=== PATIENT | male | born 1960 | race Caucasian/White ===

== ENCOUNTER 2016-10-04 09:07 | Inpatient (IN) | payer OTHER ==
[~2016-10-04] VITALS: Ht 180.3 cm; Wt 114.0 kg
[~2016-10-04 09:07] MED LIST: ACETAMINOPHEN-1 EAC1 PO; ADULT LOW DOSE81 M1 PO; ADVAIR HFA120 INHALA IH; ADVIL200 MG PO; AFRIN,GENASAL D15 ML BOTH NARES; ALBUTEROL SULF8.5 GM IH; ALDACTONE25 MG PO; ALEVE220 M2 PO; ALEVE220 MG PO; AMIODARONE HCL200 MG PO; AMOXICILLIN875 MG PO; ASPIR 8181 M1 PO; ASPIR-LOW81 MG PO; ATORVASTATIN CA40 MG PO; AZITHROMYCIN500 M1 PO; BENZONATATE100 MG PO; BICARSIM80 MG PO; BUMETANIDE1 MG PO; BUMETANIDE2 MG PO; BUMEX1 MG PO; CARDIZEM CD,CA180 MG PO; CARDIZEM CD,CA240 MG PO; CARDIZEM CD120 MG PO; CARDIZEM CD240 MG PO; CARTIA XT120 MG PO; CARVEDILOL12.5 MG PO; CARVEDILOL25 MG PO; CARVEDILOL3.125 MG PO; CEFTIN500 MG PO; COLACE10 MG/ML PO; COLACE100 MG PO; COMBIVENT RESPIM4 GM IH; CORDARONE200 MG PO; COREG12.5 M1 PO; COREG25 M1 PO; COREG3.125 M1 PO; COUMADIN5 MG PO; COUMADIN6 MG PO; COUMADIN7.5 MG PO; COZAAR25 MG PO; DIGITEK250 MC2 PO; DIGOX250 MCG PO; DIGOXIN125 MCG PO; DIGOXIN250 MCG PO; DILTIAZEM 24HR240 MG PO; DOCUSATE SODIU100 MG PO; DOXYCYCLINE HY100 MG PO; FLONASE ALLERG9.9 ML BOTH NARES; FLONASE16 G1 BOTH NARES; FUROSEMIDE40 MG PO; GLUCOPHAGE500 MG PO; HYCODAN SYRUP480 ML PO; LASIX20 MG PO; LASIX40 MG PO; LEVEMIR FL100 UNIT/1 SC; LEVEMIR100 UNIT/2 SC; LEVOFLOXACIN750 MG PO; LISINOPRIL10 MG PO; LISINOPRIL2.5 MG PO; LO-DOSE ASPIRIN81 M1 PO; LOPRESSOR25 MG PO; LOPRESSOR50 MG PO; LOSARTAN POTASS25 MG PO; LOVENOX150 MG/1 M SC; METFORMIN HCL500 MG PO; METOPROLOL TAR100 MG PO; METOPROLOL TART25 MG PO; METOPROLOL TART50 MG PO; MILK OF MAGNESI10 ML PO; MIRALAX17 GM PO; MOTRIN400 MG PO; MUCINEX600 MG PO; NAPROSYN500 MG PO; OCUVITE TABLET1 EACH PO; OMEPRAZOLE40 M1 PO; OXYMETAZOLINE H15 ML BOTH NARES; PERCOCET 5/31 TABLET PO; POLYETHYLENE GL17 GM PO; PRAVACHOL80 MG PO; PRAVASTATIN SOD80 MG PO; PREDNISONE10 MG PO; PREDNISONE20 MG PO; PREDNISONE50 MG PO; PROVENTIL HFA6.7 GM IH; SPIRONOLACTONE25 MG PO; TYLENOL REGULA325 MG PO; TYLENOL WITH C1 EACH PO; ULTRAM50 MG PO; VENTOLIN HFA18 GM IH; XARELTO20 MG PO; ZESTRIL10 MG PO; ZITHROMAX Z-PA250 MG PO; ZITHROMAX250 MG PO; ZYRTEC10 M3 PO; [UNRECOGNIZED DRUG - OTHER] TP
[2016-10-04 09:37] LABS: HEMATOCRIT 40.2 % (38.0-50.0); MCH 26.3 PG (29.0-34.0); MCHC 33.1 G/DL (30.0-36.0); MCV 79.6 FL (86-99); MEAN PLAT.VOLUME 11.9 uM^3 (9.0-12.4); PLATELET COUNT 187 K/uL (156-360); RBC DIS.WIDTH-CV 17.5 % (11.8-14.6); RBC DIS.WIDTH-SD 48.9 % (39-53); RED BLOOD COUNT 5.05 M/uL (4.00-5.50); WHITE BLOOD COUNT 14.6 K/uL (4.1-10.2)
[2016-10-04 09:45] LABS: CHLORIDE 106 mEq/L (99-109); POTASSIUM 4.1 mEq/L (3.7-5.4)
[2016-10-04 09:49] LABS: ANION GAP 16 MEQ/L (2-14)
[2016-10-04 09:50] LABS: TOTAL BILIRUBIN 0.8 mg/dL (0.0-1.0)
[2016-10-04 09:51] LABS: ALKALINE PHOSPHATASE 94 IU/L (3-129); GFR ESTIMATE (CALCULATED) > 59 mL/min/
[2016-10-04 09:52] LABS: GLUCOSE 275 mg/dL (70-99); SODIUM 141 mEq/L (136-147)
[2016-10-04 10:00] LABS: UREA NITROGEN (BUN) 25 mg/dL (9-23)
[2016-10-04 10:55] LABS: ABS NEUTROPHIL COUNT 9.81; ANISOCYTOSIS 1+; MACROCYTES 1+; PLAT.SUFFICIENCY ADEQUATE; SPHEROCYTES OCC; USER ID TLW
[2016-10-04 11:05] LABS: MAGNESIUM 2.1 mg/dL (1.3-2.7)
[2016-10-04 11:17] LABS: TROP-I INTERPRETATION NEGATIVE; TROPONIN-I 0.02 ng/mL (0.0-0.30)
[2016-10-04] MEDS ORDERED: BUMEX2 MG PO (11:26)
[2016-10-04] MEDS ORDERED: LEVEMIR FL100 UNIT/1 SC (11:28)
[2016-10-04] MEDS ORDERED: LOW DOSE ASPIRI81 M1 PO (11:29)
[2016-10-04] MEDS ORDERED: LOPRESSOR25 MG PO (11:30)
[2016-10-04] MEDS ORDERED: POTASSIUM CHLO10 ME3 PO (11:30)
[2016-10-04] MEDS ORDERED: ADVAIR HFA120 INHALA IH (11:31)
[2016-10-04] MEDS ORDERED: DILTIAZEM 24HR240 MG PO (11:31)
[2016-10-04] MEDS ORDERED: LEVOFLOXACIN750 MG PO (11:32)
[2016-10-04] MEDS ORDERED: DAILY VITE1 EAC1 PO (11:34)
[2016-10-04] MEDS ORDERED: PREDNISONE20 MG PO (11:35)
[2016-10-04 13:54] LABS: DELETE MACHINE DIFF? YES
[2016-10-04 15:25] VITALS: BP 105/60
[2016-10-04 15:30] VITALS: BP 106/62
[2016-10-04 15:45] VITALS: BP 108/63
[2016-10-04 16:00] VITALS: BP 118/70
[2016-10-04 17:27] LABS: TROP-I INTERPRETATION NEGATIVE; TROPONIN-I < 0.01 ng/mL (0.0-0.30)
[2016-10-04 17:29] LABS: METH RESISTANT S AUREUS PCR NEGATIVE (NEGATIVE)
[2016-10-04 17:30] LABS: PROBE CHECK PASS; SPECIMEN PROCESSING CONTROL PASS
[2016-10-04 18:00] VITALS: BP 109/64
[2016-10-04 20:00] VITALS: BP 106/68
[2016-10-05] VITALS (7 sets, daily range): BP systolic 108–142; BP diastolic 59–85
[2016-10-05 06:24] LABS: ALKALINE PHOSPHATASE 86 IU/L (3-129); ANION GAP 14 MEQ/L (2-14); CHLORIDE 98 MEQ/L (99-109); GFR ESTIMATE (CALCULATED) > 59 mL/min/; GLUCOSE 295 mg/dL (70-99); SAMPLE HEMOLYSIS CHECK 0; SAMPLE ICTERIC CHECK 0; SAMPLE LIPEMIA CHECK 0; SODIUM 140 MEQ/L (136-147); TOTAL BILIRUBIN 1.4 MG/DL (0.0-1.0); UREA NITROGEN (BUN) 23 mg/dL (9-23)
[2016-10-05 06:43] LABS: HEMATOCRIT 40.9 % (38.0-50.0); MCH 25.3 PG (29.0-34.0); MCHC 31.5 G/DL (30.0-36.0); MCV 80.4 FL (86-99); RBC DIS.WIDTH-CV 17.3 % (11.8-14.6); RBC DIS.WIDTH-SD 50.6 % (39-53); RED BLOOD COUNT 5.09 M/uL (4.00-5.50); WHITE BLOOD COUNT 11.1 K/uL (4.1-10.2)
[2016-10-05 07:19] LABS: PLATELET COUNT UNABLE TO REPORT K/uL (156-360)
[2016-10-05 11:38] LABS: POINT-OF-CARE USER ID ENVKC36
[2016-10-05 17:02] LABS: POINT-OF-CARE METER ID UU13113698; POINT-OF-CARE USER ID ENVKC36
[2016-10-06 00:52] VITALS: BP 110/71
[2016-10-06 05:05] VITALS: BP 106/73
[2016-10-06 06:40] LABS: ANION GAP 9 MEQ/L (2-14); CHLORIDE 96 MEQ/L (99-109); GFR ESTIMATE (CALCULATED) > 59 mL/min/; GLUCOSE 154 mg/dL (70-99); POTASSIUM 4.2 MEQ/L (3.7-5.4); SAMPLE HEMOLYSIS CHECK 0; SAMPLE ICTERIC CHECK 0; SAMPLE LIPEMIA CHECK 0; SODIUM 137 MEQ/L (136-147); UREA NITROGEN (BUN) 25 mg/dL (9-23)
[2016-10-06 07:00] VITALS: BP 108/62
[2016-10-06 08:03] LABS: POINT-OF-CARE METER ID UU13113698
[2016-10-06 11:00] VITALS: BP 112/62
[2016-10-06] MEDS ORDERED: DOXYCYCLINE HY100 M3 PO (13:03)
[2016-10-06] MEDS ORDERED: LOPRESSOR50 MG PO (13:03)
[2016-10-06] MEDS ORDERED: LOSARTAN POTASS25 MG PO (15:35)
== END 2016-10-06 16:00 | disposition home or self-care (01) | DRG 308 ==
LOC: EME 09:07 → 4EAST 10:20 → EDOF 10:20 → 4WEST 10:20 → 4EAST 10-05 11:18
PROVIDERS: Emergency Medicine; Internal Medicine; Student in an Organized Health Care Education/Training Program
DX: I48.1 Persistent atrial fibrillation (principal); J96.01 Acute respiratory failure with hypoxia; J44.0 Chronic obstructive pulmonary disease with (acute) lower respiratory infection; J18.9 Pneumonia, unspecified organism; I50.23 Acute on chronic systolic (congestive) heart failure; I42.0 Dilated cardiomyopathy; Q25.43 Congenital aneurysm of aorta; J20.9 Acute bronchitis, unspecified; I10 Essential (primary) hypertension; E11.9 Type 2 diabetes mellitus without complications; E78.5 Hyperlipidemia, unspecified; E66.01 Morbid (severe) obesity due to excess calories; Z68.35 Body mass index [BMI] 35.0-35.9, adult; I25.2 Old myocardial infarction; Z79.01 Long term (current) use of anticoagulants; Z95.810 Presence of automatic (implantable) cardiac defibrillator; Z79.4 Long term (current) use of insulin; Z87.891 Personal history of nicotine dependence
CPT/HCPCS: 36415; 71010; 80048; 80053; 80061; 80076; 80162; 82043; 82570; 82948; 83036; 83735; 83880; 84484; 85025; 85027; 86850; 86900; 86901; 87040; 87070; 87205; 87641; 93005; 93306; 94640; 94640 76; 94644; 94645; 94760; 94799; 99202; 99281; 99285; J1100; J1160; J1815; J2270; J2405; J2543; J7050

== ENCOUNTER 2016-11-03 10:20 | Emergency (ER) | payer OTHER ==
[~2016-11-03] VITALS: Ht 180.3 cm; Wt 122.7 kg
[~2016-11-03 10:20] MED LIST changes: +BUMEX2 MG PO; +DAILY VITE1 EAC1 PO; +DOXYCYCLINE HY100 M3 PO; +LOW DOSE ASPIRI81 M1 PO; +POTASSIUM CHLO10 ME3 PO
[2016-11-03 11:09] LABS: HEMATOCRIT 37.8 % (38.0-50.0); MCH 26.1 PG (29.0-34.0); MCHC 32.8 G/DL (30.0-36.0); MCV 79.6 FL (86-99); RBC DIS.WIDTH-CV 17.1 % (11.8-14.6); RBC DIS.WIDTH-SD 47.2 % (39-53); RED BLOOD COUNT 4.75 M/uL (4.00-5.50); WHITE BLOOD COUNT 9.1 K/uL (4.1-10.2)
[2016-11-03 11:13] LABS: EOSINOPHIL (%) 0.7 % (0-5); EOSINOPHIL COUNT 0.1 K/uL (0-0.3); IMMATURE GRANULOCYTE (%) 0.3 % (0.0-0.7); IMMATURE GRANULOCYTE COUNT 0.3 K/uL; LYMPHOCYTE COUNT 1.2 K/uL (1.0-2.8); MEAN PLAT.VOLUME 11.1 uM^3 (9.0-12.4); MONOCYTE (%) 7.2 % (3-12); MONOCYTE COUNT 0.7 K/uL (0-0.8); NEUTROPHIL (%) 77.8 % (45-76); NEUTROPHIL COUNT 7.1 K/uL (1.8-6.4)
[2016-11-03 11:19] LABS: INTER. NORMALIZED RATIO 1.3; PROTHROMBIN TIME 13.1 (9.2-11.2)
[2016-11-03 11:23] LABS: CHLORIDE 100 mEq/L (99-109); POTASSIUM 3.2 mEq/L (3.7-5.4); SODIUM 138 mEq/L (136-147)
[2016-11-03 11:24] LABS: GLUCOSE 194 mg/dL (70-99)
[2016-11-03 11:26] LABS: ANION GAP 14 MEQ/L (2-14)
[2016-11-03 11:28] LABS: GFR ESTIMATE (CALCULATED) > 59 mL/min/
[2016-11-03 11:29] LABS: TROP-I INTERPRETATION NEGATIVE; TROPONIN-I 0.02 ng/mL (0.0-0.30); UREA NITROGEN (BUN) 11 mg/dL (9-23)
[2016-11-03 12:02] LABS: PLATELET COUNT 140 K/uL (156-360)
[2016-11-03 14:42] LABS: TROP-I INTERPRETATION NEGATIVE; TROPONIN-I 0.02 ng/mL (0.0-0.30)
[2016-11-03 15:14] VITALS: BP 94/71
== END 2016-11-03 15:18 | disposition home or self-care (01) ==
LOC: EME 10:20
PROVIDERS: Emergency Medicine
DX: R07.89 Other chest pain (principal); M54.9 Dorsalgia, unspecified; J45.909 Unspecified asthma, uncomplicated; J44.9 Chronic obstructive pulmonary disease, unspecified; E11.9 Type 2 diabetes mellitus without complications; E78.5 Hyperlipidemia, unspecified; I25.10 Atherosclerotic heart disease of native coronary artery without angina pectoris; I25.2 Old myocardial infarction; K21.9 Gastro-esophageal reflux disease without esophagitis; Z87.442 Personal history of urinary calculi; Z79.84 Long term (current) use of oral hypoglycemic drugs; Z79.82 Long term (current) use of aspirin; Z87.891 Personal history of nicotine dependence
CPT/HCPCS: 71010; 71275; 80048; 84484; 85025; 85610; 85730; 93005; 99281; 99285; J2270

== ENCOUNTER 2016-11-12 08:15 | Inpatient (IN) | payer OTHER ==
[~2016-11-12] VITALS: Ht 180.3 cm; Wt 127.6 kg
[2016-11-12 08:51] LABS: BASOPHIL COUNT 0.1 K/uL (0-0.1); EOSINOPHIL (%) 0.5 % (0-5); EOSINOPHIL COUNT 0.1 K/uL (0-0.3); HEMATOCRIT 41.5 % (38.0-50.0); IMMATURE GRANULOCYTE (%) 0.5 % (0.0-0.7); IMMATURE GRANULOCYTE COUNT 0.7 K/uL; LYMPHOCYTE COUNT 2.6 K/uL (1.0-2.8); MCH 26.1 PG (29.0-34.0); MCHC 31.8 G/DL (30.0-36.0); MEAN PLAT.VOLUME 11.5 uM^3 (9.0-12.4); MONOCYTE (%) 10.4 % (3-12); MONOCYTE COUNT 1.4 K/uL (0-0.8); NEUTROPHIL COUNT 8.9 K/uL (1.8-6.4); PLATELET COUNT 175 K/uL (156-360); RBC DIS.WIDTH-CV 17.4 % (11.8-14.6); RBC DIS.WIDTH-SD 51.3 % (39-53); RED BLOOD COUNT 5.06 M/uL (4.00-5.50); WHITE BLOOD COUNT 13.1 K/uL (4.1-10.2)
[2016-11-12 09:00] LABS: CHLORIDE 107 mEq/L (99-109); POTASSIUM 4.5 mEq/L (3.7-5.4); SODIUM 140 mEq/L (136-147)
[2016-11-12 09:02] LABS: GLUCOSE 235 mg/dL (70-99)
[2016-11-12 09:03] LABS: ANION GAP 14 MEQ/L (2-14)
[2016-11-12 09:06] LABS: GFR ESTIMATE (CALCULATED) > 59 mL/min/
[2016-11-12 09:07] LABS: UREA NITROGEN (BUN) 13 mg/dL (9-23)
[2016-11-12 09:09] LABS: INTER. NORMALIZED RATIO 1.2; PROTHROMBIN TIME 12.3 (9.2-11.2); PTT 28.6 (25-32)
[2016-11-12 09:11] LABS: TROP-I INTERPRETATION NEGATIVE; TROPONIN-I 0.02 ng/mL (0.0-0.30)
[2016-11-12] MEDS ORDERED: BUMEX1 MG PO (11:56)
[2016-11-12] MEDS ORDERED: LOPRESSOR25 MG PO (11:59)
[2016-11-12] MEDS ORDERED: ULTRAM50 MG PO (12:00)
[2016-11-12] MEDS ORDERED: COZAAR25 MG PO (12:00)
[2016-11-12] MEDS ORDERED: TESSALON200 MG PO (12:01)
[2016-11-12 15:30] LABS: POINT-OF-CARE METER ID UU13113702
[2016-11-12 17:28] VITALS: BP 122/86
[2016-11-12 19:13] VITALS: BP 137/84
[2016-11-12 20:16] VITALS: BP 134/70
[2016-11-12 21:17] VITALS: BP 113/77
[2016-11-12 22:01] VITALS: BP 125/83
[2016-11-12 23:19] VITALS: BP 106/91
[2016-11-13] VITALS (14 sets, daily range): BP systolic 90–134; BP diastolic 54–91
[2016-11-13 16:16] LABS: POINT-OF-CARE METER ID UU13113698
[2016-11-14 00:22] VITALS: BP 99/60
[2016-11-14 03:45] VITALS: BP 94/61
[2016-11-14 07:28] LABS: ANION GAP 8 MEQ/L (2-14); CHLORIDE 100 MEQ/L (99-109); GFR ESTIMATE (CALCULATED) > 59 mL/min/; GLUCOSE 135 mg/dL (70-99); MAGNESIUM 1.7 mg/dl (1.3-2.7); POTASSIUM 3.9 MEQ/L (3.7-5.4); SAMPLE HEMOLYSIS CHECK 0; SAMPLE ICTERIC CHECK 0; SAMPLE LIPEMIA CHECK 0; SODIUM 135 MEQ/L (136-147); UREA NITROGEN (BUN) 15 mg/dL (9-23)
[2016-11-14 07:37] VITALS: BP 88/56
[2016-11-14 07:43] LABS: POINT-OF-CARE METER ID UU14174216
[2016-11-14] MEDS ORDERED: TESSALON200 MG PO (08:55)
== END 2016-11-14 10:59 | disposition home or self-care (01) | DRG 292 ==
LOC: EME 08:15 → EDOF 11:32 → 4EAST 13:16 → EDOF 13:16 → 4EAST 17:03
PROVIDERS: Emergency Medicine; Family Medicine; Hospitalist; Internal Medicine
DX: I50.43 Acute on chronic combined systolic (congestive) and diastolic (congestive) heart failure (principal); I42.0 Dilated cardiomyopathy; Z68.41 Body mass index [BMI] 40.0-44.9, adult; I48.2 Chronic atrial fibrillation; J44.9 Chronic obstructive pulmonary disease, unspecified; E11.9 Type 2 diabetes mellitus without complications; Z96.652 Presence of left artificial knee joint; E66.01 Morbid (severe) obesity due to excess calories; Z79.01 Long term (current) use of anticoagulants; Z79.4 Long term (current) use of insulin; Z79.82 Long term (current) use of aspirin
CPT/HCPCS: 71010; 80048; 82948; 83735; 83880; 84484; 85025; 85610; 85730; 93005; 94640; 94640 76; 94799; 99202; 99281; 99285; J1815

== ENCOUNTER 2017-01-25 12:51 | Observation (INO) | payer OTHER ==
[~2017-01-25] VITALS: Ht 180.3 cm; Wt 123.0 kg
[~2017-01-25 12:51] MED LIST changes: +TESSALON200 MG PO
[2017-01-25 14:55] LABS: HEMATOCRIT 42.9 % (38.0-50.0); MCHC 32.6 G/DL (30.0-36.0); MCV 79.7 FL (86-99); PLATELET COUNT 185 K/uL (156-360); RBC DIS.WIDTH-CV 14.9 % (11.8-14.6); RBC DIS.WIDTH-SD 42.9 % (39-53); RED BLOOD COUNT 5.38 M/uL (4.00-5.50); WHITE BLOOD COUNT 11.8 K/uL (4.1-10.2)
[2017-01-25 15:02] LABS: CHLORIDE 102 mEq/L (99-109); POTASSIUM 3.4 mEq/L (3.7-5.4); SODIUM 138 mEq/L (136-147)
[2017-01-25 15:04] LABS: GLUCOSE 140 mg/dL (70-99)
[2017-01-25 15:05] LABS: ANION GAP 16 MEQ/L (2-14)
[2017-01-25 15:08] LABS: GFR ESTIMATE (CALCULATED) > 59 mL/min/
[2017-01-25 15:09] LABS: UREA NITROGEN (BUN) 14 mg/dL (9-23)
[2017-01-25 15:14] LABS: TROP-I INTERPRETATION NEGATIVE; TROPONIN-I 0.03 ng/mL (0.0-0.30)
[2017-01-25] MEDS ORDERED: BUMEX2 MG PO (22:05)
[2017-01-25] MEDS ORDERED: ASMANEX TW200 MICRO1 IH (22:06)
[2017-01-26 00:42] VITALS: BP 101/67
[2017-01-26 01:15] LABS: POINT-OF-CARE METER ID UU13113700
[2017-01-26 03:53] LABS: TROP-I INTERPRETATION NEGATIVE; TROPONIN-I 0.03 ng/mL (0.0-0.30)
[2017-01-26 06:15] VITALS: BP 113/79
[2017-01-26 07:56] VITALS: BP 112/72
[2017-01-26 08:00] LABS: POINT-OF-CARE METER ID UU13113700
[2017-01-26 10:30] LABS: TROP-I INTERPRETATION NEGATIVE; TROPONIN-I 0.04 ng/mL (0.0-0.30)
[2017-01-26 11:31] VITALS: BP 118/78
[2017-01-26] MEDS ORDERED: COZAAR25 MG PO (12:24)
[2017-01-26 12:35] LABS: POINT-OF-CARE METER ID UU13113700
== END 2017-01-26 13:26 | disposition home or self-care (01) ==
LOC: EME 12:51 → EDOF 23:38 → 5WEST 01-26 00:22
PROVIDERS: Hospitalist; Nurse Practitioner Adult Health; Student in an Organized Health Care Education/Training Program
DX: R07.9 Chest pain, unspecified (principal); I48.1 Persistent atrial fibrillation; E11.9 Type 2 diabetes mellitus without complications; R06.02 Shortness of breath; M54.5 Low back pain; R20.2 Paresthesia of skin; I11.0 Hypertensive heart disease with heart failure; I50.9 Heart failure, unspecified; I42.9 Cardiomyopathy, unspecified; J44.9 Chronic obstructive pulmonary disease, unspecified; Z95.810 Presence of automatic (implantable) cardiac defibrillator; Z79.01 Long term (current) use of anticoagulants; I25.2 Old myocardial infarction; E11.42 Type 2 diabetes mellitus with diabetic polyneuropathy; E66.9 Obesity, unspecified; Z68.37 Body mass index [BMI] 37.0-37.9, adult; I25.10 Atherosclerotic heart disease of native coronary artery without angina pectoris; I51.9 Heart disease, unspecified; I77.819 Aortic ectasia, unspecified site
CPT/HCPCS: 71020; 71275; 72129; 80048; 82948; 84484; 85027; 93005; 94640; 94640 76; 99202; 99281; 99285; G0378; J1815; J2270; J2405

== ENCOUNTER 2017-02-28 11:52 | Day surgery (SDC) | payer OTHER ==
[~2017-02-28] VITALS: Ht 180.3 cm; Wt 123.0 kg
[~2017-02-28 11:52] MED LIST changes: +ASMANEX TW200 MICRO1 IH
[2017-02-28 12:28] LABS: POINT-OF-CARE METER ID UU13113696
== END 2017-02-28 18:15 | disposition home or self-care (01) ==
LOC: CATH 11:52
PROVIDERS: Internal Medicine Cardiovascular Disease
DX: I48.1 Persistent atrial fibrillation (principal); R05 Cough; M54.9 Dorsalgia, unspecified; I42.0 Dilated cardiomyopathy; I50.22 Chronic systolic (congestive) heart failure; E78.5 Hyperlipidemia, unspecified; E66.3 Overweight; Z68.42 Body mass index [BMI] 45.0-49.9, adult; Z79.01 Long term (current) use of anticoagulants; Z95.810 Presence of automatic (implantable) cardiac defibrillator
CPT/HCPCS: 82948; C1730; C1732; C1766; C1894; J1940; J2250; J2270; J3010; J7050; S0020

== ENCOUNTER 2017-03-02 07:47 | Inpatient (IN) | payer OTHER ==
[~2017-03-02] VITALS: Ht 180.3 cm; Wt 130.3 kg
[2017-03-02 08:47] LABS: HEMATOCRIT 39.2 % (38.0-50.0); MCHC 32.9 G/DL (30.0-36.0); MEAN PLAT.VOLUME 12.1 uM^3 (9.0-12.4); NRBC (%) 0.2 /100 WBC (0-0); PLATELET COUNT 157 K/uL (156-360); RBC DIS.WIDTH-SD 44.2 % (39-53); RED BLOOD COUNT 4.78 M/uL (4.00-5.50); WHITE BLOOD COUNT 17.8 K/uL (4.1-10.2)
[2017-03-02 08:58] LABS: CHLORIDE 97 mEq/L (99-109); SODIUM 131 mEq/L (136-147)
[2017-03-02 08:59] LABS: INTER. NORMALIZED RATIO 1.8; PROTHROMBIN TIME 18.5 (9.2-11.2); PTT 31.8 (25-32)
[2017-03-02 09:00] LABS: GLUCOSE 211 mg/dL (70-99)
[2017-03-02 09:01] LABS: ANION GAP 15 MEQ/L (2-14)
[2017-03-02 09:02] LABS: TOTAL BILIRUBIN 3.1 mg/dL (0.0-1.0)
[2017-03-02 09:03] LABS: ALKALINE PHOSPHATASE 86 IU/L (3-129)
[2017-03-02 09:04] LABS: GFR ESTIMATE (CALCULATED) > 59 mL/min/
[2017-03-02 09:05] LABS: UREA NITROGEN (BUN) 18 mg/dL (9-23)
[2017-03-02 09:09] LABS: TROP-I INTERPRETATION NEGATIVE; TROPONIN-I 0.11 ng/mL (0.0-0.30)
[2017-03-02 13:09] LABS: BASE EXCESS -3.3 mEq/L (-3 to +3); BICARBONATE 18.9 mEq/L (22-26); CARBOXY HGB 2.9 % (0-5); COMMENTS - BLOOD GASES A+C+; DEVICE NC; METHEMOGLOBIN 1.3 % (0-1.5); O2 FLOW 6 L/MIN; PCO2 26 mm Hg (35-45); PO2 88 mm Hg (80-100); SITE RR; TOTAL RESP RATE 33 resp/min; pH 7.47 (7.35-7.45)
[2017-03-02 13:24] VITALS: BP 128/77
[2017-03-02 15:19] VITALS: BP 110/72
[2017-03-02 17:02] LABS: POINT-OF-CARE METER ID UU13113781
[2017-03-02 19:00] VITALS: BP 116/59
[2017-03-02 21:36] LABS: POINT-OF-CARE METER ID UU13113698
[2017-03-03] VITALS (15 sets, daily range): BP systolic 68–115; BP diastolic 42–72
[2017-03-03 05:49] LABS: HEMATOCRIT 36.4 % (38.0-50.0); MCH 27.3 PG (29.0-34.0); MCV 82.9 FL (86-99); MEAN PLAT.VOLUME 12.7 uM^3 (9.0-12.4); NRBC (%) 0.2 /100 WBC (0-0); PLATELET COUNT 116 K/uL (156-360); RBC DIS.WIDTH-CV 15.2 % (11.8-14.6); RBC DIS.WIDTH-SD 45.2 % (39-53); RED BLOOD COUNT 4.39 M/uL (4.00-5.50); WHITE BLOOD COUNT 17.2 K/uL (4.1-10.2)
[2017-03-03 06:26] LABS: ALKALINE PHOSPHATASE 112 IU/L (3-129); ANION GAP 10 MEQ/L (2-14); CHLORIDE 95 MEQ/L (99-109); GFR ESTIMATE (CALCULATED) > 59 mL/min/; GLUCOSE 196 mg/dL (70-99); POTASSIUM 3.6 MEQ/L (3.7-5.4); SAMPLE HEMOLYSIS CHECK 0; SAMPLE ICTERIC CHECK 1; SAMPLE LIPEMIA CHECK 0; SODIUM 130 MEQ/L (136-147); TOTAL BILIRUBIN 3.1 MG/DL (0.0-1.0); UREA NITROGEN (BUN) 26 mg/dL (9-23)
[2017-03-03 07:54] LABS: INTER. NORMALIZED RATIO 2.2; PROTHROMBIN TIME 22.7 (9.2-11.2); PTT 31.3 (25-32)
[2017-03-03 08:17] LABS: HPCA INDEX 0.16
[2017-03-03 08:18] LABS: ANTI-HEPATITIS A VIRUS (IGM) Nonreactive; ANTI-HEPATITIS B CORE (IGM) Nonreactive; HAV INDEX 0.12; HBC IgM INDEX 0.08
[2017-03-03 10:10] LABS: INTERNAL CONTROL VALID? YES
[2017-03-03 11:37] LABS: BASE EXCESS -3.3 mEq/L (-3 to +3); BICARBONATE 19.7 mEq/L (22-26); CARBOXY HGB 2.5 % (0-5); METHEMOGLOBIN 1.5 % (0-1.5); PCO2 29 mm Hg (35-45); pH 7.44 (7.35-7.45)
[2017-03-03 11:38] LABS: PO2 106 mm Hg (80-100)
[2017-03-03 11:39] LABS: COMMENTS - BLOOD GASES A+C+; DEVICE NC; O2 FLOW 4 L/MIN; SITE RR; TOTAL RESP RATE 24 resp/min
[2017-03-03 13:58] LABS: METH RESISTANT S AUREUS PCR NEGATIVE (NEGATIVE); PROBE CHECK PASS; SPECIMEN PROCESSING CONTROL PASS
[2017-03-03 14:11] LABS: POINT-OF-CARE METER ID UU13113731
[2017-03-03 15:10] LABS: ANION GAP 11 MEQ/L (2-14); CHLORIDE 91 MEQ/L (99-109); GFR ESTIMATE (CALCULATED) 56 mL/min/; GLUCOSE 241 mg/dL (70-99); POTASSIUM 4.2 MEQ/L (3.7-5.4); SAMPLE HEMOLYSIS CHECK 0; SAMPLE ICTERIC CHECK 1; SAMPLE LIPEMIA CHECK 0; SODIUM 125 MEQ/L (136-147); TROP-I INTERPRETATION NEGATIVE; TROPONIN-I 0.09 ng/mL (0.0-0.30); UREA NITROGEN (BUN) 32 mg/dL (9-23)
[2017-03-03 15:33] LABS: TOTAL BILIRUBIN 3.9 MG/DL (0.0-1.0)
[2017-03-03 15:34] LABS: ALKALINE PHOSPHATASE 176 IU/L (3-129)
[2017-03-03 17:03] LABS: POINT-OF-CARE METER ID UU13113803
[2017-03-03 21:43] LABS: POINT-OF-CARE METER ID UU13113731
[2017-03-04] VITALS (23 sets, daily range): BP systolic 0–119; BP diastolic 0–86
[2017-03-04 06:05] LABS: BASOPHIL COUNT 0.1 K/uL (0-0.1); EOSINOPHIL (%) 0 % (0-5); HEMATOCRIT 35.2 % (38.0-50.0); IMMATURE GRANULOCYTE (%) 1.2 % (0.0-0.7); IMMATURE GRANULOCYTE COUNT 0.2 K/uL; INSTRUMENT ABS NEUTROPHIL CT 12.2 K/uL; LYMPHOCYTE COUNT 1.9 K/uL (1.0-2.8); MCH 27.5 PG (29.0-34.0); MCHC 32.7 G/DL (30.0-36.0); MCV 84.2 FL (86-99); MONOCYTE (%) 7.3 % (3-12); MONOCYTE COUNT 1.1 K/uL (0-0.8); NEUTROPHIL (%) 78.6 % (45-76); NEUTROPHIL COUNT 12.2 K/uL (1.8-6.4); NRBC (%) 0.3 /100 WBC (0-0); RBC DIS.WIDTH-CV 15.4 % (11.8-14.6); RBC DIS.WIDTH-SD 46.1 % (39-53); RED BLOOD COUNT 4.18 M/uL (4.00-5.50); WHITE BLOOD COUNT 15.6 K/uL (4.1-10.2)
[2017-03-04 06:19] LABS: GFR ESTIMATE (CALCULATED) > 59 mL/min/; MAGNESIUM 1.9 mg/dl (1.3-2.7); UREA NITROGEN (BUN) 26 mg/dL (9-23)
[2017-03-04 06:36] LABS: ALKALINE PHOSPHATASE 167 IU/L (3-129); ANION GAP 9 MEQ/L (2-14); CHLORIDE 92 MEQ/L (99-109); GFR ESTIMATE (CALCULATED) > 59 mL/min/; GLUCOSE 192 mg/dL (70-99); POTASSIUM 3.6 MEQ/L (3.7-5.4); SAMPLE HEMOLYSIS CHECK 0; SAMPLE ICTERIC CHECK 1; SAMPLE LIPEMIA CHECK 0; SODIUM 128 MEQ/L (136-147); TOTAL BILIRUBIN 3.3 MG/DL (0.0-1.0); UREA NITROGEN (BUN) 27 mg/dL (9-23)
[2017-03-04 09:26] LABS: PLATELET COUNT 93 K/uL (156-360)
[2017-03-04 09:27] LABS: ABS NEUTROPHIL COUNT 12.9; ATYPICAL LYMPHOCYTE 0.8 %; BAND NEUTROPHILS 2.6 % (0-8.0); BURR CELLS 2+; EOSINOPHIL ABS CT 0; LYMPHOCYTES 9.5 % (15.0-45.0); MYELOCYTES 1.7 %; NUCLEATED RBC'S 0.9; PLAT.SUFFICIENCY DECREASED; POIKILOCYTOSIS 3+; SEG.NEUTROPHILS 80.2 % (46.0-76.0)
[2017-03-04 12:41] LABS: POINT-OF-CARE METER ID UU13113731
[2017-03-04 17:52] LABS: POINT-OF-CARE METER ID UU13113731
[2017-03-04 22:16] LABS: POINT-OF-CARE METER ID UU13113731; POINT-OF-CARE USER ID PHATLC
[2017-03-05] VITALS (23 sets, daily range): BP systolic 88–133; BP diastolic 57–86
[2017-03-05 05:27] LABS: MCH 27.6 PG (29.0-34.0); MCHC 33.1 G/DL (30.0-36.0); MCV 83.3 FL (86-99); MEAN PLAT.VOLUME 13.8 uM^3 (9.0-12.4); NRBC (%) 0.4 /100 WBC (0-0); PLATELET COUNT 77 K/uL (156-360); RBC DIS.WIDTH-CV 15.8 % (11.8-14.6); RBC DIS.WIDTH-SD 45.4 % (39-53); WHITE BLOOD COUNT 14.2 K/uL (4.1-10.2)
[2017-03-05 06:02] LABS: ALKALINE PHOSPHATASE 204 IU/L (3-129); ANION GAP 12 MEQ/L (2-14); CHLORIDE 91 MEQ/L (99-109); GFR ESTIMATE (CALCULATED) > 59 mL/min/; GLUCOSE 166 mg/dL (70-99); POTASSIUM 4.1 MEQ/L (3.7-5.4); SAMPLE HEMOLYSIS CHECK 0; SAMPLE ICTERIC CHECK 1; SAMPLE LIPEMIA CHECK 0; SODIUM 124 MEQ/L (136-147); TOTAL BILIRUBIN 3.5 MG/DL (0.0-1.0); UREA NITROGEN (BUN) 17 mg/dL (9-23)
[2017-03-05 06:03] LABS: MAGNESIUM 2.3 mg/dl (1.3-2.7)
[2017-03-05 11:45] LABS: POINT-OF-CARE METER ID UU14162636
[2017-03-05 17:27] LABS: POINT-OF-CARE METER ID UU14162636
[2017-03-05 21:28] LABS: POINT-OF-CARE METER ID UU13113803
[2017-03-06] VITALS (23 sets, daily range): BP systolic 88–116; BP diastolic 51–81
[2017-03-06 05:57] LABS: MCH 27.7 PG (29.0-34.0); MCHC 33.1 G/DL (30.0-36.0); MCV 83.5 FL (86-99); MEAN PLAT.VOLUME 14.2 uM^3 (9.0-12.4); NRBC (%) 0.5 /100 WBC (0-0); PLATELET COUNT 95 K/uL (156-360); RBC DIS.WIDTH-CV 15.9 % (11.8-14.6); RBC DIS.WIDTH-SD 46.9 % (39-53); RED BLOOD COUNT 4.19 M/uL (4.00-5.50); WHITE BLOOD COUNT 15.9 K/uL (4.1-10.2)
[2017-03-06 06:39] LABS: ANION GAP 10 MEQ/L (2-14); CHLORIDE 91 MEQ/L (99-109); GFR ESTIMATE (CALCULATED) > 59 mL/min/; MAGNESIUM 2.2 mg/dl (1.3-2.7); POTASSIUM 4.4 MEQ/L (3.7-5.4); SAMPLE HEMOLYSIS CHECK 0; SAMPLE ICTERIC CHECK 1; SAMPLE LIPEMIA CHECK 0; SODIUM 126 MEQ/L (136-147); TOTAL BILIRUBIN 3.6 MG/DL (0.0-1.0); UREA NITROGEN (BUN) 19 mg/dL (9-23)
[2017-03-06 06:47] LABS: ALKALINE PHOSPHATASE 293 IU/L (3-129); GLUCOSE 115 mg/dL (70-99)
[2017-03-06 12:47] LABS: POINT-OF-CARE METER ID UU14162636
[2017-03-06 16:34] LABS: POINT-OF-CARE METER ID UU14162636; POINT-OF-CARE USER ID 606021424
[2017-03-06 22:38] LABS: POINT-OF-CARE METER ID UU14162636
[2017-03-07] VITALS (12 sets, daily range): BP systolic 73–128; BP diastolic 47–83
[2017-03-07 05:28] LABS: HEMATOCRIT 38.3 % (38.0-50.0); MCH 26.9 PG (29.0-34.0); MCHC 31.9 G/DL (30.0-36.0); MCV 84.5 FL (86-99); NRBC (%) 0.5 /100 WBC (0-0); RBC DIS.WIDTH-CV 16.1 % (11.8-14.6); RBC DIS.WIDTH-SD 47.9 % (39-53); RED BLOOD COUNT 4.53 M/uL (4.00-5.50); WHITE BLOOD COUNT 15.8 K/uL (4.1-10.2)
[2017-03-07 05:46] LABS: ALKALINE PHOSPHATASE 321 IU/L (3-129); ANION GAP 9 MEQ/L (2-14); CHLORIDE 93 MEQ/L (99-109); GFR ESTIMATE (CALCULATED) > 59 mL/min/; GLUCOSE 108 mg/dL (70-99); MAGNESIUM 2.3 mg/dl (1.3-2.7); POTASSIUM 4.3 MEQ/L (3.7-5.4); SAMPLE HEMOLYSIS CHECK 0; SAMPLE ICTERIC CHECK 1; SAMPLE LIPEMIA CHECK 0; SODIUM 130 MEQ/L (136-147); UREA NITROGEN (BUN) 22 mg/dL (9-23)
[2017-03-07 06:48] LABS: MEAN PLAT.VOLUME 12.7 uM^3 (9.0-12.4); PLAT.SUFFICIENCY DECREASED; PLATELET COUNT 111 K/uL (156-360)
[2017-03-07 12:48] LABS: POINT-OF-CARE METER ID UU13113748
[2017-03-07 17:56] LABS: POINT-OF-CARE METER ID UU13113748
[2017-03-07 21:19] LABS: POINT-OF-CARE METER ID UU13113748
[2017-03-08 05:53] LABS: HEMATOCRIT 35.8 % (38.0-50.0); MCH 27.7 PG (29.0-34.0); MCHC 32.7 G/DL (30.0-36.0); MCV 84.6 FL (86-99); NRBC (%) 0.4 /100 WBC (0-0); RBC DIS.WIDTH-CV 16.5 % (11.8-14.6); RBC DIS.WIDTH-SD 49.5 % (39-53); RED BLOOD COUNT 4.23 M/uL (4.00-5.50); WHITE BLOOD COUNT 13.6 K/uL (4.1-10.2)
[2017-03-08 06:30] LABS: ALKALINE PHOSPHATASE 342 IU/L (3-129); ANION GAP 9 MEQ/L (2-14); CHLORIDE 92 MEQ/L (99-109); GFR ESTIMATE (CALCULATED) > 59 mL/min/; GLUCOSE 110 mg/dL (70-99); MAGNESIUM 2.4 mg/dl (1.3-2.7); POTASSIUM 4.8 MEQ/L (3.7-5.4); SAMPLE HEMOLYSIS CHECK 2; SAMPLE ICTERIC CHECK 0; SAMPLE LIPEMIA CHECK 0; SODIUM 127 MEQ/L (136-147); UREA NITROGEN (BUN) 22 mg/dL (9-23)
[2017-03-08 07:06] LABS: MEAN PLAT.VOLUME 13.2 uM^3 (9.0-12.4); PLAT.SUFFICIENCY DECREASED; PLATELET CLUMPS PRESENT - PLATELET COUNTS APPEARS DECREASED
[2017-03-08 08:00] VITALS: BP 110/73
[2017-03-08 08:07] LABS: POINT-OF-CARE METER ID UU14162636
[2017-03-08 11:30] LABS: POINT-OF-CARE METER ID UU14162636
[2017-03-08 12:40] VITALS: BP 106/69
[2017-03-08 14:33] VITALS: BP 96/67
[2017-03-08 15:41] VITALS: BP 104/68
[2017-03-08 19:41] VITALS: BP 92/61
[2017-03-08 21:29] LABS: POINT-OF-CARE METER ID UU14149397
[2017-03-09] VITALS (7 sets, daily range): BP systolic 92–109; BP diastolic 57–72
[2017-03-09 07:14] LABS: HEMATOCRIT 39.1 % (38.0-50.0); MCH 26.8 PG (29.0-34.0); MCHC 31.7 G/DL (30.0-36.0); MCV 84.4 FL (86-99); MEAN PLAT.VOLUME 12.8 uM^3 (9.0-12.4); NRBC (%) 0.3 /100 WBC (0-0); RBC DIS.WIDTH-CV 16.6 % (11.8-14.6); RBC DIS.WIDTH-SD 50.6 % (39-53); RED BLOOD COUNT 4.63 M/uL (4.00-5.50); WHITE BLOOD COUNT 12.3 K/uL (4.1-10.2)
[2017-03-09 07:18] LABS: PLATELET COUNT 146 K/uL (156-360)
[2017-03-09 07:53] LABS: ALKALINE PHOSPHATASE 342 IU/L (3-129); ANION GAP 9 MEQ/L (2-14); CHLORIDE 90 MEQ/L (99-109); GFR ESTIMATE (CALCULATED) > 59 mL/min/; GLUCOSE 107 mg/dL (70-99); MAGNESIUM 2.6 mg/dl (1.3-2.7); POTASSIUM 4.1 MEQ/L (3.7-5.4); SAMPLE HEMOLYSIS CHECK 0; SAMPLE ICTERIC CHECK 1; SAMPLE LIPEMIA CHECK 0; SODIUM 125 MEQ/L (136-147); TOTAL BILIRUBIN 4.5 MG/DL (0.0-1.0); UREA NITROGEN (BUN) 24 mg/dL (9-23)
[2017-03-09 21:13] LABS: POINT-OF-CARE METER ID UU14149397
[2017-03-10 03:37] VITALS: BP 111/63
[2017-03-10 06:48] LABS: HEMATOCRIT 38.5 % (38.0-50.0); MCH 26.7 PG (29.0-34.0); MCHC 31.4 G/DL (30.0-36.0); MCV 84.8 FL (86-99); MEAN PLAT.VOLUME 12.5 uM^3 (9.0-12.4); PLATELET COUNT 154 K/uL (156-360); RBC DIS.WIDTH-CV 16.6 % (11.8-14.6); RED BLOOD COUNT 4.54 M/uL (4.00-5.50); WHITE BLOOD COUNT 11.3 K/uL (4.1-10.2)
[2017-03-10 07:36] LABS: ALKALINE PHOSPHATASE 331 IU/L (3-129); ANION GAP 9 MEQ/L (2-14); CHLORIDE 92 MEQ/L (99-109); GFR ESTIMATE (CALCULATED) > 59 mL/min/; GLUCOSE 111 mg/dL (70-99); POTASSIUM 4.3 MEQ/L (3.7-5.4); SAMPLE HEMOLYSIS CHECK 0; SAMPLE ICTERIC CHECK 1; SAMPLE LIPEMIA CHECK 0; SODIUM 129 MEQ/L (136-147); TOTAL BILIRUBIN 4.5 MG/DL (0.0-1.0); UREA NITROGEN (BUN) 23 mg/dL (9-23)
[2017-03-10 07:40] VITALS: BP 102/68
[2017-03-10] MEDS ORDERED: OXYCODONE HCL5 MG PO (10:17)
[2017-03-10] MEDS ORDERED: CARVEDILOL3.125 MG PO (10:17)
[2017-03-10] MEDS ORDERED: BUMEX2 MG PO (10:17)
[2017-03-10 12:02] VITALS: BP 125/79
== END 2017-03-10 12:43 | DRG 871 ==
LOC: EME 07:47 → 4WEST 10:52 → EDOF 10:52 → 5SOUTH 12:47 → 4EAST 14:49 → 4WEST 03-03 11:54 → 3EAST 03-08 14:15
PROVIDERS: Emergency Medicine; Hospitalist; Internal Medicine; Internal Medicine Critical Care Medicine; Nurse Practitioner Family; Student in an Organized Health Care Education/Training Program
DX: A41.9 Sepsis, unspecified organism (principal); R57.0 Cardiogenic shock; K72.00 Acute and subacute hepatic failure without coma; J96.01 Acute respiratory failure with hypoxia; I50.43 Acute on chronic combined systolic (congestive) and diastolic (congestive) heart failure; E83.42 Hypomagnesemia; I42.0 Dilated cardiomyopathy; J15.9 Unspecified bacterial pneumonia; K76.1 Chronic passive congestion of liver; E11.42 Type 2 diabetes mellitus with diabetic polyneuropathy; E66.01 Morbid (severe) obesity due to excess calories; E78.5 Hyperlipidemia, unspecified; E83.39 Other disorders of phosphorus metabolism; E87.1 Hypo-osmolality and hyponatremia; E87.2 Acidosis; E87.6 Hypokalemia; I25.2 Old myocardial infarction; Z87.442 Personal history of urinary calculi; I48.2 Chronic atrial fibrillation; I49.3 Ventricular premature depolarization; J44.0 Chronic obstructive pulmonary disease with (acute) lower respiratory infection; N20.0 Calculus of kidney; K57.90 Diverticulosis of intestine, part unspecified, without perforation or abscess without bleeding; K76.0 Fatty (change of) liver, not elsewhere classified; N17.9 Acute kidney failure, unspecified; N62 Hypertrophy of breast; R65.20 Severe sepsis without septic shock; Z68.39 Body mass index [BMI] 39.0-39.9, adult; Z79.01 Long term (current) use of anticoagulants; Z79.4 Long term (current) use of insulin; Z82.3 Family history of stroke; Z87.01 Personal history of pneumonia (recurrent); Z87.891 Personal history of nicotine dependence; Z90.49 Acquired absence of other specified parts of digestive tract; Z91.040 Latex allergy status; Z95.0 Presence of cardiac pacemaker; Z95.810 Presence of automatic (implantable) cardiac defibrillator; E66.9 Obesity, unspecified; R04.2 Hemoptysis
CPT/HCPCS: 36600; 71010; 71020; 71275; 74177; 76705; 80048 91; 80053; 80074; 82565; 82803; 82948; 83605; 83735; 83880; 84100; 84145 90; 84484; 84520; 85025; 85027; 85610; 85730; 87040; 87070; 87205; 87449; 87641; 93005; 93306; 94640; 94640 76; 94760; 94799; 99202; 99281; 99284; J0456; J0696; J1250; J1815; J1940; J2270; J2405; J3475; J7030; J7040; J7050

== ENCOUNTER 2017-03-13 02:38 | Inpatient (IN) | payer OTHER ==
[2017-03-13] VITALS (23 sets, daily range): BP systolic 84–124; BP diastolic 48–83
[~2017-03-13] VITALS: Ht 180.3 cm; Wt 138.1 kg
[~2017-03-13 02:38] MED LIST changes: +OXYCODONE HCL5 MG PO
[2017-03-13 03:24] LABS: HEMATOCRIT 39.1 % (38.0-50.0); MCH 26.7 PG (29.0-34.0); MCHC 32.2 G/DL (30.0-36.0); MCV 82.8 FL (86-99); NRBC (%) 0.3 /100 WBC (0-0); PLATELET COUNT 193 K/uL (156-360); RBC DIS.WIDTH-CV 17.2 % (11.8-14.6); RBC DIS.WIDTH-SD 49.5 % (39-53); RED BLOOD COUNT 4.72 M/uL (4.00-5.50)
[2017-03-13 03:39] LABS: CHLORIDE 89 mEq/L (99-109); SODIUM 120 mEq/L (136-147)
[2017-03-13 03:41] LABS: PTT 37.1 (25-32)
[2017-03-13 03:42] LABS: ANION GAP 17 MEQ/L (2-14)
[2017-03-13 03:43] LABS: TOTAL BILIRUBIN 6.5 mg/dL (0.0-1.0)
[2017-03-13 03:44] LABS: ALKALINE PHOSPHATASE 417 IU/L (3-129)
[2017-03-13 03:45] LABS: GFR ESTIMATE (CALCULATED) 56 mL/min/; GLUCOSE 169 mg/dL (70-99)
[2017-03-13 03:46] LABS: UREA NITROGEN (BUN) 29 mg/dL (9-23)
[2017-03-13 03:48] LABS: INTER. NORMALIZED RATIO 7.8
[2017-03-13 03:54] LABS: TROP-I INTERPRETATION NEGATIVE; TROPONIN-I 0.01 ng/mL (0.0-0.30)
[2017-03-13 08:41] LABS: METH RESISTANT S AUREUS PCR NEGATIVE (NEGATIVE); PROBE CHECK PASS; SPECIMEN PROCESSING CONTROL PASS
[2017-03-13 10:27] LABS: ALKALINE PHOSPHATASE 340 IU/L (3-129); ANION GAP 13 MEQ/L (2-14); CHLORIDE 90 MEQ/L (99-109); GFR ESTIMATE (CALCULATED) 56 mL/min/; GLUCOSE 166 mg/dL (70-99); MAGNESIUM 2.3 mg/dl (1.3-2.7); POTASSIUM 5.3 MEQ/L (3.7-5.4); SAMPLE HEMOLYSIS CHECK 0; SAMPLE ICTERIC CHECK 2; SAMPLE LIPEMIA CHECK 0; SODIUM 124 MEQ/L (136-147); UREA NITROGEN (BUN) 30 mg/dL (9-23)
[2017-03-13 10:28] LABS: TOTAL BILIRUBIN 6.3 MG/DL (0.0-1.0)
[2017-03-13 10:29] LABS: PTT 37.9 (25-32)
[2017-03-13 10:31] LABS: INTER. NORMALIZED RATIO 4.5; PROTHROMBIN TIME 47.9 (9.2-11.2)
[2017-03-13 16:58] LABS: POINT-OF-CARE METER ID UU13113731
[2017-03-13 22:04] LABS: POINT-OF-CARE METER ID UU13113731
[2017-03-14] VITALS (16 sets, daily range): BP systolic 83–109; BP diastolic 52–75
[2017-03-14 06:03] LABS: MCH 26.9 PG (29.0-34.0); MCHC 32.6 G/DL (30.0-36.0); MCV 82.5 FL (86-99); MEAN PLAT.VOLUME 11.3 uM^3 (9.0-12.4); PLATELET COUNT 141 K/uL (156-360); RBC DIS.WIDTH-CV 17.2 % (11.8-14.6); RBC DIS.WIDTH-SD 49.8 % (39-53); RED BLOOD COUNT 4.12 M/uL (4.00-5.50)
[2017-03-14 06:40] LABS: INTER. NORMALIZED RATIO 2.2
[2017-03-14 08:12] LABS: ALKALINE PHOSPHATASE 260 IU/L (3-129); ANION GAP 7 MEQ/L (2-14); CHLORIDE 95 MEQ/L (99-109); GLUCOSE 136 mg/dL (70-99); SAMPLE HEMOLYSIS CHECK 1; SAMPLE ICTERIC CHECK 1; SAMPLE LIPEMIA CHECK 0; SODIUM 127 MEQ/L (136-147); UREA NITROGEN (BUN) 20 mg/dL (9-23)
[2017-03-14 08:19] LABS: GFR ESTIMATE (CALCULATED) > 59 mL/min/; TOTAL BILIRUBIN 4.7 MG/DL (0.0-1.0)
[2017-03-14 09:34] LABS: POINT-OF-CARE METER ID UU13113748
[2017-03-14 12:09] LABS: POINT-OF-CARE METER ID UU13113748
[2017-03-14 18:01] LABS: POINT-OF-CARE METER ID UU13113748
[2017-03-14 21:29] LABS: POINT-OF-CARE METER ID UU13113731
== END 2017-03-14 22:02 | disposition short-term general hospital (02) | DRG 871 ==
LOC: EME → EDBD 02:38 → EDOF 04:25 → 4WEST 06:20
PROVIDERS: Emergency Medicine; Internal Medicine; Internal Medicine Critical Care Medicine
DX: A41.9 Sepsis, unspecified organism (principal); K72.00 Acute and subacute hepatic failure without coma; J96.01 Acute respiratory failure with hypoxia; R65.21 Severe sepsis with septic shock; D68.9 Coagulation defect, unspecified; I50.23 Acute on chronic systolic (congestive) heart failure; J18.9 Pneumonia, unspecified organism; E87.2 Acidosis; Y95 Nosocomial condition; E11.8 Type 2 diabetes mellitus with unspecified complications; T50.995A Adverse effect of other drugs, medicaments and biological substances, initial encounter; E11.65 Type 2 diabetes mellitus with hyperglycemia; E66.01 Morbid (severe) obesity due to excess calories; E78.5 Hyperlipidemia, unspecified; E87.1 Hypo-osmolality and hyponatremia; F12.90 Cannabis use, unspecified, uncomplicated; I25.2 Old myocardial infarction; Z87.442 Personal history of urinary calculi; I27.2 Other secondary pulmonary hypertension; I34.0 Nonrheumatic mitral (valve) insufficiency; I42.0 Dilated cardiomyopathy; I48.91 Unspecified atrial fibrillation; J44.0 Chronic obstructive pulmonary disease with (acute) lower respiratory infection; J98.11 Atelectasis; K52.9 Noninfective gastroenteritis and colitis, unspecified; K57.90 Diverticulosis of intestine, part unspecified, without perforation or abscess without bleeding; K76.1 Chronic passive congestion of liver; R18.8 Other ascites; Z68.41 Body mass index [BMI] 40.0-44.9, adult; Z87.891 Personal history of nicotine dependence; Z93.3 Colostomy status; Z95.810 Presence of automatic (implantable) cardiac defibrillator; R09.89 Other specified symptoms and signs involving the circulatory and respiratory systems; N17.9 Acute kidney failure, unspecified; E87.6 Hypokalemia
CPT/HCPCS: 71010; 71020; 71250; 74000; 74176; 80048; 80053; 80076; 80202; 81003; 82803; 82948; 83605; 83735; 83935; 84100; 84300; 84484; 84540; 85027; 85610; 85730; 87040; 87070; 87086; 87205; 87493; 87641; 93005; 94640; 94640 76; 94799; 99202; 99281; 99285; J0456; J0610; J0692; J1815; J2405; J2543; J3370; J7030; J7050; S0030

== ENCOUNTER 2017-04-22 23:52 | Inpatient (IN) | payer OTHER ==
[~2017-04-22] VITALS: Ht 180.3 cm; Wt 111.0 kg
[~2017-04-22 23:52] MED LIST changes: +K-DUR20 MEQ PO; -POTASSIUM CHLO10 ME3 PO
[2017-04-23 00:54] LABS: BASOPHIL COUNT 0.1 K/uL (0-0.1); EOSINOPHIL (%) 0 % (0-5); HEMATOCRIT 33.2 % (38.0-50.0); IMMATURE GRANULOCYTE (%) 0.1 % (0.0-0.7); INSTRUMENT ABS NEUTROPHIL CT 4.2 K/uL; LYMPHOCYTE COUNT 1.7 K/uL (1.0-2.8); MCH 27.5 PG (29.0-34.0); MCHC 32.5 G/DL (30.0-36.0); MCV 84.5 FL (86-99); MEAN PLAT.VOLUME 10.6 uM^3 (9.0-12.4); MONOCYTE (%) 10.8 % (3-12); MONOCYTE COUNT 0.7 K/uL (0-0.8); NEUTROPHIL (%) 62.3 % (45-76); NEUTROPHIL COUNT 4.2 K/uL (1.8-6.4); PLATELET COUNT 109 K/uL (156-360); RBC DIS.WIDTH-SD 58.7 % (39-53); RED BLOOD COUNT 3.93 M/uL (4.00-5.50); WHITE BLOOD COUNT 6.8 K/uL (4.1-10.2)
[2017-04-23 00:59] LABS: INTER. NORMALIZED RATIO 1.7
[2017-04-23 01:01] LABS: PTT 31.4 SEC (25-37)
[2017-04-23 01:02] LABS: CHLORIDE 101 mEq/L (99-109)
[2017-04-23 01:03] LABS: POTASSIUM 3.6 mEq/L (3.7-5.4); SODIUM 133 mEq/L (136-147)
[2017-04-23 01:04] LABS: GLUCOSE 88 mg/dL (70-99)
[2017-04-23 01:05] LABS: ADD MIUA? YES; BILIRUBIN NEGATIVE; BLOOD SMALL; COLOR YELLOW ((YELLOW)); GLUCOSE (STRIP) NEGATIVE; KETONES NEGATIVE; LEUKOCYTES NEGATIVE; NITRITE NEGATIVE; PROTEIN (STRIP) NEGATIVE; SPECIFIC GRAVITY 1.013 (1.000-1.030); UROBILINOGEN 0.2 MG/DL (0.2-1.0)
[2017-04-23 01:06] LABS: ANION GAP 10 MEQ/L (2-14)
[2017-04-23 01:08] LABS: GFR ESTIMATE (CALCULATED) > 59 mL/min/
[2017-04-23 01:09] LABS: UREA NITROGEN (BUN) 18 mg/dL (9-23)
[2017-04-23 01:16] LABS: BACTERIA RARE /HPF; EPITHELIAL CELLS NONE SEEN /HPF; MUCUS NONE SEEN /LPF; RED BLOOD CELLS 0-5 /HPF (0-5); UCUL ADDED? NO; WHITE BLOOD CELLS 0-5 /HPF (0-5)
[2017-04-23 07:18] LABS: MCH 27.4 PG (29.0-34.0); MCHC 32.2 G/DL (30.0-36.0); MCV 85.1 FL (86-99); MEAN PLAT.VOLUME 11.8 uM^3 (9.0-12.4); PLATELET COUNT 84 K/uL (156-360); RBC DIS.WIDTH-CV 19.2 % (11.8-14.6); RBC DIS.WIDTH-SD 59.1 % (39-53); RED BLOOD COUNT 4.35 M/uL (4.00-5.50); WHITE BLOOD COUNT 5.4 K/uL (4.1-10.2)
[2017-04-23 07:48] LABS: ALKALINE PHOSPHATASE 73 IU/L (3-129); ANION GAP 9 MEQ/L (2-14); CHLORIDE 101 MEQ/L (99-109); GFR ESTIMATE (CALCULATED) > 59 mL/min/; GLUCOSE 104 mg/dL (70-99); SAMPLE HEMOLYSIS CHECK 2; SAMPLE ICTERIC CHECK 0; SAMPLE LIPEMIA CHECK 0; SODIUM 132 MEQ/L (136-147); UREA NITROGEN (BUN) 14 mg/dL (9-23)
[2017-04-23 07:49] LABS: POTASSIUM 4.5 MEQ/L (3.7-5.4)
[2017-04-23 08:53] LABS: POINT-OF-CARE METER ID UU13113781
[2017-04-23 11:25] LABS: POINT-OF-CARE METER ID UU13113781
[2017-04-23] MEDS ORDERED: BUMEX2 MG PO (12:03)
[2017-04-23] MEDS ORDERED: LISINOPRIL2.5 MG PO (12:05)
[2017-04-23] MEDS ORDERED: ALDACTONE25 MG PO (12:06)
[2017-04-23 15:10] VITALS: BP 100/62
[2017-04-23 16:24] LABS: POINT-OF-CARE METER ID UU13113698
[2017-04-23 21:43] VITALS: BP 96/56
[2017-04-23 23:07] LABS: POINT-OF-CARE METER ID UU13113698
[2017-04-24 00:05] VITALS: BP 100/62
[2017-04-24 04:36] VITALS: BP 100/54
[2017-04-24 05:39] LABS: HEMATOCRIT 34.7 % (38.0-50.0); MCHC 32.3 G/DL (30.0-36.0); MCV 86.8 FL (86-99); MEAN PLAT.VOLUME 11.3 uM^3 (9.0-12.4); RBC DIS.WIDTH-CV 19.6 % (11.8-14.6); RBC DIS.WIDTH-SD 61.9 % (39-53); WHITE BLOOD COUNT 6.2 K/uL (4.1-10.2)
[2017-04-24 05:40] LABS: PLATELET COUNT 117 K/uL (156-360)
[2017-04-24 05:56] LABS: ANION GAP 10 MEQ/L (2-14); CHLORIDE 103 MEQ/L (99-109); GFR ESTIMATE (CALCULATED) > 59 mL/min/; SAMPLE HEMOLYSIS CHECK 0; SAMPLE ICTERIC CHECK 0; SAMPLE LIPEMIA CHECK 0; SODIUM 136 MEQ/L (136-147); UREA NITROGEN (BUN) 14 mg/dL (9-23)
[2017-04-24 05:57] LABS: GLUCOSE 62 mg/dL (70-99)
[2017-04-24 07:54] VITALS: BP 115/74
[2017-04-24 07:58] LABS: POINT-OF-CARE METER ID UU13113698
[2017-04-24 08:04] LABS: POINT-OF-CARE METER ID UU13113717
[2017-04-24 11:28] LABS: POINT-OF-CARE METER ID UU14174225
[2017-04-24 15:15] VITALS: BP 109/58
[2017-04-24 16:43] LABS: POINT-OF-CARE METER ID UU13113717
[2017-04-24 21:24] LABS: POINT-OF-CARE METER ID UU14174225
[2017-04-25] VITALS: BP 103/53
[2017-04-25 03:44] LABS: POINT-OF-CARE METER ID UU14174225
[2017-04-25 07:12] LABS: HEMATOCRIT 34.8 % (38.0-50.0); MCH 27.9 PG (29.0-34.0); MCHC 32.2 G/DL (30.0-36.0); MCV 86.6 FL (86-99); MEAN PLAT.VOLUME 10.8 uM^3 (9.0-12.4); PLATELET COUNT 121 K/uL (156-360); RBC DIS.WIDTH-CV 18.6 % (11.8-14.6); RED BLOOD COUNT 4.02 M/uL (4.00-5.50)
[2017-04-25 07:27] VITALS: BP 102/52
[2017-04-25 08:11] LABS: POINT-OF-CARE METER ID UU14174225
[2017-04-25] MEDS ORDERED: TIZANIDINE HCL2 MG PO (10:54)
[2017-04-25] MEDS ORDERED: SPIRONOLACTONE25 MG PO (10:55)
[2017-04-25] MEDS ORDERED: BUMETANIDE1 MG PO (10:56)
[2017-04-25] MEDS ORDERED: POLYETHYLENE GL17 GM PO (11:00)
[2017-04-25] MEDS ORDERED: ENDOCET 5-3251 EACH PO (11:01)
== END 2017-04-25 12:00 | disposition home or self-care (01) | DRG 552 ==
LOC: EME 23:52 → EDOF 04-23 04:53 → 5SOUTH 04-23 04:53 → 4EAST 04-23 04:53 → ENRESERV 04-23 04:57 → 4EAST 04-23 07:51 → ENRESERV 04-24 05:49 → 5SOUTH 04-24 07:45
PROVIDERS: Emergency Medicine; Hospitalist; Internal Medicine; Nurse Practitioner Adult Health
DX: S32.018A Other fracture of first lumbar vertebra, initial encounter for closed fracture (principal); W06.XXXA Fall from bed, initial encounter; Y92.003 Bedroom of unspecified non-institutional (private) residence as the place of occurrence of the external cause; I42.9 Cardiomyopathy, unspecified; E87.1 Hypo-osmolality and hyponatremia; I11.0 Hypertensive heart disease with heart failure; I50.9 Heart failure, unspecified; D69.6 Thrombocytopenia, unspecified; I48.91 Unspecified atrial fibrillation; E87.6 Hypokalemia; M47.816 Spondylosis without myelopathy or radiculopathy, lumbar region; M46.87 Other specified inflammatory spondylopathies, lumbosacral region; M43.16 Spondylolisthesis, lumbar region; I34.0 Nonrheumatic mitral (valve) insufficiency; E11.9 Type 2 diabetes mellitus without complications; E78.5 Hyperlipidemia, unspecified; E78.00 Pure hypercholesterolemia, unspecified; K21.9 Gastro-esophageal reflux disease without esophagitis; I25.2 Old myocardial infarction; Z68.38 Body mass index [BMI] 38.0-38.9, adult; Z95.810 Presence of automatic (implantable) cardiac defibrillator; Z79.01 Long term (current) use of anticoagulants; Z79.4 Long term (current) use of insulin; Z87.891 Personal history of nicotine dependence; Z87.442 Personal history of urinary calculi; Z91.040 Latex allergy status
CPT/HCPCS: 72131; 80048; 80053; 81003; 82948; 85025; 85027; 85610; 85730; 93005; 99281; 99284; J1170; J1815; J3010

== ENCOUNTER 2017-10-21 09:08 | Emergency (ER) | payer OTHER ==
[~2017-10-21] VITALS: Ht 180.3 cm; Wt 126.6 kg
[~2017-10-21 09:08] MED LIST changes: +ENDOCET 5-3251 EACH PO; +TIZANIDINE HCL2 MG PO
[2017-10-21 09:40] LABS: HEMATOCRIT 43.9 % (38.0-50.0); HEMOGLOBIN 15.5 G/DL (12.5-16.6); MCH 30.2 PG (29.0-34.0); MCHC 35.3 G/DL (30.0-36.0); MCV 85.4 FL (86-99); PLATELET COUNT 126 K/uL (156-360); RBC DIS.WIDTH-CV 13.1 % (11.8-14.6); RBC DIS.WIDTH-SD 41.3 % (39-53); RED BLOOD COUNT 5.14 M/uL (4.00-5.50)
[2017-10-21 09:52] LABS: CHLORIDE 106 mEq/L (99-109); POTASSIUM 4.2 mEq/L (3.7-5.4); SODIUM 136 mEq/L (136-147)
[2017-10-21 09:54] LABS: GLUCOSE 104 mg/dL (70-99)
[2017-10-21 09:58] LABS: CREATININE 0.8 mg/dL (0.6-1.3); GFR ESTIMATE (CALCULATED) > 59 mL/min/ (58.99-99999); UREA NITROGEN (BUN) 17 mg/dL (9-23)
[2017-10-21 10:06] LABS: TROP-I INTERPRETATION NEGATIVE; TROPONIN-I < 0.01 ng/mL (0.0-0.30)
[2017-10-21] MEDS ORDERED: PREDNISONE20 MG PO (14:31)
[2017-10-21 14:52] VITALS: BP 105/68
== END 2017-10-21 14:53 | disposition home or self-care (01) ==
LOC: EME 09:08
DX: J44.1 Chronic obstructive pulmonary disease with (acute) exacerbation (principal); I50.9 Heart failure, unspecified; R19.7 Diarrhea, unspecified; I25.2 Old myocardial infarction; E78.5 Hyperlipidemia, unspecified; Z95.0 Presence of cardiac pacemaker; Z87.891 Personal history of nicotine dependence; Z91.040 Latex allergy status
CPT/HCPCS: 71046; 80048; 83880; 84484; 85027; 93005; 94640; 94640 76; 99281; 99285; J7512

== ENCOUNTER 2018-02-04 08:26 | Emergency (ER) | payer OTHER ==
[~2018-02-04] VITALS: Ht 180.3 cm; Wt 141.8 kg
[2018-02-04 08:56] LABS: BASOPHIL (%) 0.9 % (0-1); BASOPHIL COUNT 0.1 K/uL (0-0.1); EOSINOPHIL (%) 0.2 % (0-5); HEMOGLOBIN 13.6 G/DL (12.5-16.6); IMMATURE GRANULOCYTE (%) 0.3 % (0.0-0.7); LYMPHOCYTE (%) 14.2 % (15-42); LYMPHOCYTE COUNT 1.4 K/uL (1.0-2.8); MCH 30.6 PG (29.0-34.0); MCHC 34.9 G/DL (30.0-36.0); MCV 87.8 FL (86-99); MONOCYTE (%) 6.8 % (3-12); MONOCYTE COUNT 0.7 K/uL (0-0.8); NEUTROPHIL (%) 77.6 % (45-76); NEUTROPHIL COUNT 7.8 K/uL (1.8-6.4); PLATELET COUNT 158 K/uL (156-360); RBC DIS.WIDTH-CV 12.5 % (11.8-14.6); RBC DIS.WIDTH-SD 39.8 % (39-53); RED BLOOD COUNT 4.44 M/uL (4.00-5.50)
[2018-02-04 09:06] LABS: CHLORIDE 104 mEq/L (99-109); POTASSIUM 3.7 mEq/L (3.7-5.4); SODIUM 138 mEq/L (136-147)
[2018-02-04 09:08] LABS: GLUCOSE 110 mg/dL (70-99)
[2018-02-04 09:12] LABS: CREATININE 0.8 mg/dL (0.6-1.3); GFR ESTIMATE (CALCULATED) > 59 mL/min/ (58.99-99999)
[2018-02-04 09:13] LABS: UREA NITROGEN (BUN) 17 mg/dL (9-23)
[2018-02-04 09:17] LABS: TROP-I INTERPRETATION NEGATIVE; TROPONIN-I < 0.01 ng/mL (0.0-0.30)
[2018-02-04] MEDS ORDERED: ZITHROMAX Z-PA250 MG PO (10:44)
[2018-02-04] MEDS ORDERED: PREDNISONE20 MG PO (10:47)
[2018-02-04] MEDS ORDERED: TESSALON200 MG PO (10:47)
[2018-02-04 11:33] VITALS: BP 132/86
== END 2018-02-04 11:33 | disposition home or self-care (01) ==
LOC: EME 08:26
PROVIDERS: Emergency Medicine
DX: J44.1 Chronic obstructive pulmonary disease with (acute) exacerbation (principal); I50.9 Heart failure, unspecified; I48.91 Unspecified atrial fibrillation; Z95.0 Presence of cardiac pacemaker; Z87.891 Personal history of nicotine dependence; Z79.01 Long term (current) use of anticoagulants; I25.2 Old myocardial infarction; E78.5 Hyperlipidemia, unspecified; Z87.442 Personal history of urinary calculi; Z91.040 Latex allergy status
CPT/HCPCS: 71045; 80048; 84484; 85025; 93005; 94640 76; 99281; 99284; J7512

== ENCOUNTER 2018-02-08 10:04 | Inpatient (IN) | payer OTHER ==
[~2018-02-08] VITALS: Ht 177.8 cm; Wt 138.9 kg
[2018-02-08 11:08] LABS: HEMATOCRIT 42.6 % (38.0-50.0); HEMOGLOBIN 14.5 G/DL (12.5-16.6); MCH 30.3 PG (29.0-34.0); MCV 89.1 FL (86-99); PLATELET COUNT 190 K/uL (156-360); RBC DIS.WIDTH-CV 12.7 % (11.8-14.6); RBC DIS.WIDTH-SD 41.7 % (39-53); RED BLOOD COUNT 4.78 M/uL (4.00-5.50); WHITE BLOOD COUNT 13.8 K/uL (4.1-10.2)
[2018-02-08 11:19] LABS: ALBUMIN 4.2 g/dL (3.2-4.8); CHLORIDE 104 mEq/L (99-109); SODIUM 138 mEq/L (136-147)
[2018-02-08 11:22] LABS: GLUCOSE 111 mg/dL (70-99); TOTAL PROTEIN 7.9 g/dL (6.4-8.3)
[2018-02-08 11:24] LABS: TOTAL BILIRUBIN 0.7 mg/dL (0.0-1.0)
[2018-02-08 11:25] LABS: ALKALINE PHOSPHATASE 118 IU/L (3-129); CREATININE 0.9 mg/dL (0.6-1.3); GFR ESTIMATE (CALCULATED) > 59 mL/min/ (58.99-99999)
[2018-02-08 11:26] LABS: UREA NITROGEN (BUN) 20 mg/dL (9-23)
[2018-02-08 11:27] LABS: AST (GOT) 23 IU/L (2-34)
[2018-02-08 11:28] LABS: ALT (GPT) 25 IU/L (3-49)
[2018-02-08 11:30] LABS: TROP-I INTERPRETATION NEGATIVE; TROPONIN-I < 0.01 ng/mL (0.0-0.30)
[2018-02-08] MEDS ORDERED: BUMEX1 MG PO (13:16)
[2018-02-08] MEDS ORDERED: LOPRESSOR25 MG PO (13:23)
[2018-02-08 15:26] VITALS: BP 151/77
[2018-02-08 19:57] VITALS: BP 114/60
[2018-02-09] VITALS (7 sets, daily range): BP systolic 115–142; BP diastolic 63–76
[2018-02-09 05:55] LABS: HEMATOCRIT 40.6 % (38.0-50.0); HEMOGLOBIN 13.1 G/DL (12.5-16.6); MCH 29.2 PG (29.0-34.0); MCHC 32.3 G/DL (30.0-36.0); MCV 90.6 FL (86-99); PLATELET COUNT 172 K/uL (156-360); RBC DIS.WIDTH-CV 12.8 % (11.8-14.6); RBC DIS.WIDTH-SD 42.5 % (39-53); RED BLOOD COUNT 4.48 M/uL (4.00-5.50); WHITE BLOOD COUNT 14.7 K/uL (4.1-10.2)
[2018-02-09 06:24] LABS: ALBUMIN 3.9 G/DL (3.2-4.8); ALKALINE PHOSPHATASE 93 IU/L (3-129); ALT (GPT) 20 IU/L (3-49); AST (GOT) 16 IU/L (2-34); CHLORIDE 101 MEQ/L (99-109); GFR ESTIMATE (CALCULATED) > 59 mL/min/ (58.99-99999); POTASSIUM 4.2 MEQ/L (3.7-5.4); SODIUM 135 MEQ/L (136-147); TOTAL BILIRUBIN 0.6 MG/DL (0.0-1.0); TOTAL PROTEIN 7.2 G/DL (6.4-8.3); UREA NITROGEN (BUN) 30 mg/dL (9-23)
[2018-02-09 06:29] LABS: GLUCOSE 186 mg/dL (70-99)
[2018-02-10 03:18] VITALS: BP 119/58
[2018-02-10 07:15] VITALS: BP 119/75
[2018-02-10 09:25] LABS: CHLORIDE 100 MEQ/L (99-109); GFR ESTIMATE (CALCULATED) > 59 mL/min/ (58.99-99999); GLUCOSE 181 mg/dL (70-99); SODIUM 135 MEQ/L (136-147); UREA NITROGEN (BUN) 32 mg/dL (9-23)
[2018-02-10 11:25] VITALS: BP 136/83
[2018-02-10 13:08] LABS: HEMOGLOBIN A1c (GLYCOHEMOGLOB) 5.7 % (Below 5.7)
[2018-02-10 15:15] VITALS: BP 138/78
[2018-02-10 19:33] VITALS: BP 123/69
[2018-02-11 03:53] VITALS: BP 136/79
[2018-02-11 07:25] VITALS: BP 137/84
[2018-02-11 09:15] LABS: CHLORIDE 102 MEQ/L (99-109); CREATININE 0.8 MG/DL (0.6-1.3); GFR ESTIMATE (CALCULATED) > 59 mL/min/ (58.99-99999); GLUCOSE 174 mg/dL (70-99); POTASSIUM 5.3 MEQ/L (3.7-5.4); SODIUM 135 MEQ/L (136-147); UREA NITROGEN (BUN) 29 mg/dL (9-23)
[2018-02-11] MEDS ORDERED: FUROSEMIDE40 MG PO (11:11)
[2018-02-11] MEDS ORDERED: PREDNISONE10 MG PO (11:15)
[2018-02-11 12:06] VITALS: BP 121/79
== END 2018-02-11 12:45 | disposition home or self-care (01) | DRG 292 ==
LOC: EME 10:04 → EDOF 12:36 → ENRESERV 12:43 → 5SOUTH 15:07
PROVIDERS: Emergency Medicine Emergency Medical Services; Hospitalist; Nurse Practitioner Family
DX: I11.0 Hypertensive heart disease with heart failure (principal); I50.23 Acute on chronic systolic (congestive) heart failure; I48.1 Persistent atrial fibrillation; E78.5 Hyperlipidemia, unspecified; R09.02 Hypoxemia; E66.01 Morbid (severe) obesity due to excess calories; J44.1 Chronic obstructive pulmonary disease with (acute) exacerbation; E11.9 Type 2 diabetes mellitus without complications; I25.10 Atherosclerotic heart disease of native coronary artery without angina pectoris; I25.2 Old myocardial infarction; Z68.41 Body mass index [BMI] 40.0-44.9, adult; Z79.899 Other long term (current) drug therapy; Z87.891 Personal history of nicotine dependence; Z95.810 Presence of automatic (implantable) cardiac defibrillator; Z79.01 Long term (current) use of anticoagulants; I48.2 Chronic atrial fibrillation; I42.0 Dilated cardiomyopathy; I34.0 Nonrheumatic mitral (valve) insufficiency; T38.0X5A Adverse effect of glucocorticoids and synthetic analogues, initial encounter
CPT/HCPCS: 71045; 80048; 80053; 82948; 83036; 83880; 84484; 85027; 87070; 87205; 93005; 94640; 94640 76; 94644; 94799; 99202; 99281; 99285; J1815; J1940; J2930; J3475; J7512

== ENCOUNTER 2018-04-05 13:49 | Inpatient (IN) | payer OTHER ==
[~2018-04-05] VITALS: Ht 170.2 cm; Wt 139.7 kg
[2018-04-05 14:46] LABS: HEMATOCRIT 44.8 % (38.0-50.0); HEMOGLOBIN 15.5 G/DL (12.5-16.6); MCH 28.9 PG (29.0-34.0); MCHC 34.6 G/DL (30.0-36.0); MCV 83.6 FL (86-99); PLATELET COUNT 206 K/uL (156-360); RBC DIS.WIDTH-CV 13.2 % (11.8-14.6); RBC DIS.WIDTH-SD 40.2 % (39-53); RED BLOOD COUNT 5.36 M/uL (4.00-5.50); WHITE BLOOD COUNT 14.7 K/uL (4.1-10.2)
[2018-04-05 14:54] LABS: ALBUMIN 4.6 g/dL (3.2-4.8); CHLORIDE 97 mEq/L (99-109); POTASSIUM 3.8 mEq/L (3.7-5.4); SODIUM 135 mEq/L (136-147)
[2018-04-05 14:56] LABS: GLUCOSE 112 mg/dL (70-99); TOTAL PROTEIN 8.6 g/dL (6.4-8.3)
[2018-04-05 14:58] LABS: TOTAL BILIRUBIN 1.3 mg/dL (0.0-1.0)
[2018-04-05 15:00] LABS: ALKALINE PHOSPHATASE 137 IU/L (3-129)
[2018-04-05 15:01] LABS: UREA NITROGEN (BUN) 22 mg/dL (9-23)
[2018-04-05 15:02] LABS: AST (GOT) 18 IU/L (2-34)
[2018-04-05 15:03] LABS: ALT (GPT) 18 IU/L (3-49); LIPASE 22 U/L (1.0-51.0)
[2018-04-05 15:12] LABS: APPEARANCE CLEAR ((CLEAR)); BILIRUBIN NEGATIVE; BLOOD SMALL; COLOR YELLOW ((YELLOW)); GLUCOSE (STRIP) NEGATIVE; KETONES NEGATIVE; LEUKOCYTES NEGATIVE; NITRITE NEGATIVE; PROTEIN (STRIP) NEGATIVE; SPECIFIC GRAVITY 1.009 (1.000-1.030); UROBILINOGEN 0.2 MG/DL (0.2-1.0)
[2018-04-05 15:19] LABS: CREATININE 1.5 mg/dL (0.6-1.3); GFR ESTIMATE (CALCULATED) 52 mL/min/ (58.99-99999)
[2018-04-05 15:30] LABS: BACTERIA NONE SEEN /HPF; EPITHELIAL CELLS RARE /HPF; HYALINE CASTS 20-30 /LPF; MUCUS NONE SEEN /LPF; RED BLOOD CELLS 0-5 /HPF (0-5); WHITE BLOOD CELLS 0-5 /HPF (0-5)
[2018-04-05 16:07] LABS: TROP-I INTERPRETATION NEGATIVE; TROPONIN-I < 0.01 ng/mL (0.0-0.30)
[2018-04-05] MEDS ORDERED: LASIX40 MG PO (19:54)
[2018-04-05] MEDS ORDERED: BUMEX1 MG PO (19:54)
[2018-04-05 22:28] VITALS: BP 99/62
[2018-04-06 03:30] VITALS: BP 86/46
[2018-04-06 05:04] LABS: HEMATOCRIT 40.1 % (38.0-50.0); HEMOGLOBIN 13.6 G/DL (12.5-16.6); MCHC 33.9 G/DL (30.0-36.0); MCV 85.5 FL (86-99); PLATELET COUNT 161 K/uL (156-360); RBC DIS.WIDTH-CV 13.3 % (11.8-14.6); RBC DIS.WIDTH-SD 41.6 % (39-53); RED BLOOD COUNT 4.69 M/uL (4.00-5.50); WHITE BLOOD COUNT 11.5 K/uL (4.1-10.2)
[2018-04-06 05:42] LABS: CHLORIDE 97 MEQ/L (99-109); CREATININE 1.1 MG/DL (0.6-1.3); GFR ESTIMATE (CALCULATED) > 59 mL/min/ (58.99-99999); GLUCOSE 103 mg/dL (70-99); POTASSIUM 3.1 MEQ/L (3.7-5.4); SODIUM 135 MEQ/L (136-147); UREA NITROGEN (BUN) 19 mg/dL (9-23)
[2018-04-06 07:17] VITALS: BP 102/66
[2018-04-06 12:24] VITALS: BP 135/83
[2018-04-06 15:55] VITALS: BP 131/77
[2018-04-06 21:25] VITALS: BP 105/56
[2018-04-06 22:43] VITALS: BP 106/57
[2018-04-07 03:37] VITALS: BP 102/54
[2018-04-07 05:45] LABS: HEMATOCRIT 39.2 % (38.0-50.0); HEMOGLOBIN 13.1 G/DL (12.5-16.6); MCH 28.6 PG (29.0-34.0); MCHC 33.4 G/DL (30.0-36.0); MCV 85.6 FL (86-99); PLATELET COUNT 137 K/uL (156-360); RBC DIS.WIDTH-CV 13.2 % (11.8-14.6); RBC DIS.WIDTH-SD 40.9 % (39-53); RED BLOOD COUNT 4.58 M/uL (4.00-5.50)
[2018-04-07 06:12] LABS: CHLORIDE 96 MEQ/L (99-109); CREATININE 0.9 MG/DL (0.6-1.3); GFR ESTIMATE (CALCULATED) > 59 mL/min/ (58.99-99999); GLUCOSE 115 mg/dL (70-99); POTASSIUM 3.4 MEQ/L (3.7-5.4); SODIUM 136 MEQ/L (136-147); UREA NITROGEN (BUN) 15 mg/dL (9-23)
[2018-04-07 07:50] VITALS: BP 130/86
[2018-04-07] MEDS ORDERED: TORADOL10 MG PO (10:51)
[2018-04-07] MEDS ORDERED: LOPRESSOR25 MG PO (10:51)
[2018-04-07] MEDS ORDERED: BUMEX1 MG PO (10:53)
== END 2018-04-07 12:23 | disposition home or self-care (01) | DRG 314 ==
LOC: EME 13:49 → 4EAST 21:02 → EDOF 21:02 → ENRESERV 21:03 → 4EAST 21:48
PROVIDERS: Family Medicine; Hospitalist; Internal Medicine; Nurse Practitioner Family
DX: I95.9 Hypotension, unspecified (principal); J18.9 Pneumonia, unspecified organism; I42.9 Cardiomyopathy, unspecified; I50.22 Chronic systolic (congestive) heart failure; J44.0 Chronic obstructive pulmonary disease with (acute) lower respiratory infection; Z68.42 Body mass index [BMI] 45.0-49.9, adult; R07.81 Pleurodynia; G47.33 Obstructive sleep apnea (adult) (pediatric); I48.2 Chronic atrial fibrillation; K57.30 Diverticulosis of large intestine without perforation or abscess without bleeding; E66.9 Obesity, unspecified; T37.8X5A Adverse effect of other specified systemic anti-infectives and antiparasitics, initial encounter; I11.0 Hypertensive heart disease with heart failure; E78.5 Hyperlipidemia, unspecified; E66.01 Morbid (severe) obesity due to excess calories; Z79.01 Long term (current) use of anticoagulants; I25.10 Atherosclerotic heart disease of native coronary artery without angina pectoris; Z87.442 Personal history of urinary calculi; Z86.711 Personal history of pulmonary embolism; Z79.899 Other long term (current) drug therapy; Z90.49 Acquired absence of other specified parts of digestive tract; Z95.810 Presence of automatic (implantable) cardiac defibrillator; I25.2 Old myocardial infarction
CPT/HCPCS: 36415; 71045; 71046; 71250; 74177; 78582; 80048; 80053; 81003; 82565; 82948; 83605; 83690; 83735; 83880; 84484; 84520; 85027; 85379; 87040; 87070; 87205; 93005; 93970; 94640; 94799; 99281; 99285; A9540; A9567; J0456; J0696; J1815; J1956; J2270; J2405; J3010; J7030